=== PATIENT | female | born 1985 | race Caucasian/White ===

== ENCOUNTER 2020-03-28 19:04 | Emergency (ER) | payer OTHER, SELFPAY ==
--- NOTE | ~2020-03-28 | XR_ITS ---
EXAMINATION: XR foot RT min 3V DATE: 03/28/2020 19:34 INDICATION: Right foot pain and swelling. TECHNIQUE: 4 views of right foot were obtained. COMPARISON: None. FINDINGS: Bone alignment is normal. No fracture. Joint spaces are well maintained. IMPRESSION: 1. Normal right foot. Reviewed, dictated and finalized at location A. IMPRESSION: 1. Normal right foot.
[2020-03-28 19:07] VITALS: BP 120/91; PULSE 104; RESP 20; TEMP 36.8; O2SAT 100
[2020-03-28] MEDS: ACETAMINOPHEN 500 MG TABLET 1000 MG PO (19:59)
--- NOTE | 2020-03-28 20:34 | ED.LOWEXIN ---
HPI - Extremity Injury (Lower) General Chief Complaint: Extremity Injury, Lower Stated Complaint: rt foot injury after fall Time Seen by Provider: 03/28/20 19:11 Source: patient Mode of arrival: wheelchair Limitations: no limitations History of Present Illness HPI Narrative: This is a 34 year old female that presents to the ER for right foot pain after an injury today. Reports she tripped walking and twisted her right foot. Reports since she has had swelling and pain to the right lateral foot. Reports pain is worse with weight bearing and relieved with rest. Reports she is 23 weeks . Reports she thinks her baby has been moving less today. Denies hitting her head, loss of consciousness, other injuries, or numbness. Related Data Allergies Allergy/AdvReac Type Severity Reaction Status Date / Time No Known Allergies Allergy Unknown Verified 01/20/07 18:50 Review of Systems Review of Systems: Narrative: CONSTITUTIONAL: Denies fever MUSCULOSKELETAL: Reports joint pain, and myalgia. NEUROLOGIC: Denies numbness All systems reviewed & are unremarkable except as noted in HPI and below PMFSH Family History Family History (Updated 05/14/16 @ 23:21 by DOCTOR UNKNOWN) Mother Family history of diabetes mellitus in first degree relative Grandparent Family history of malignant neoplasm of male breast Sibling Depression Patient's sister is in good health Father Patient's father is in good health Other Diabetes mellitus Family history of multiple sclerosis Social History Social History Smoking status: Former smoker Second hand tobacco smoke exposure: Yes Smoking end date: 10/17/15 Alcohol intake: current Exam Narrative: Exam Narrative: GENERAL: Well-appearing, well-nourished, and in no acute distress. HEAD: Normocephalic, atraumatic. EYES: EOMI. CHEST: Clear to auscultation. No respiratory distress. No wheezes rales or rhonchi HEART: Regular rate and rhythm. No murmur heard. Normal peripheral pulses. EXTREMITIES: Normal range of motion. Mild swelling and bruising to the right lateral foot dorsal surface over the metatarsal bones SKIN: Warm, dry, no rash. NEURO: No focal deficits. Alert and oriented x3. PSYCH: Normal mood and affect Course Vital Signs Vital signs: Vital Signs Temperature 98.2 F 03/28/20 19:07 Pulse Rate 104 H 03/28/20 19:07 Respiratory Rate 20 03/28/20 19:07 Blood Pressure 120/91 H 03/28/20 19:07 Pulse Oximetry 100 03/28/20 19:07 Temperature 98.2 F 03/28/20 19:07 Pulse Rate 104 H 03/28/20 19:07 Respiratory Rate 20 03/28/20 19:07 Blood Pressure 120/91 H 03/28/20 19:07 Pulse Oximetry 100 03/28/20 19:07 Procedures Other Procedure Procedure 1: Other Procedure: Bedside ultrasound performed by myself showed good movement and cardiac motion MDM - Extremity Injury (Lower) MDM Narrative Medical decision making narrative: Patient presents to the emergency department for right foot pain after an injury today. Right foot x-rays without acute. Patient given an Donte wrap and crutches. Instructed to rest, ice and take Tylenol as needed for pain. Patient also reported that she thought the baby was moving less today. I performed a bedside ultrasound. Fetus is active and has good cardiac motion. Patient is to follow-up with her primary care doctor and OB. Patient given warnings to return to the ER Imaging Data Radiologist's impression: ITS Impressions Foot X-Ray 03/28/20 19:39 IMPRESSION: 1. Normal right foot. Critical Care Time Critical Care Time Critical Care Time: No Discharge Plan Discharge Clinical Impression: Acute pain of right foot Patient Disposition: Home, Self-Care Condition: Stable Instructions: Foot Sprain (ED) Additional Instructions: Return to the emergency department if you experience fever, redness and swelling of your foot, or any other symptoms that are concerning to you Rest. I
== END 2020-03-28 21:15 | disposition home or self-care (01) ==
PROVIDERS: Emergency Provider Emergency Medicine
DX: M79.671 Pain in right foot (principal); Z87.891 Personal history of nicotine dependence
CPT/HCPCS: 73630; 99283; A9270

== ENCOUNTER 2020-06-13 12:11 | Observation (INO) | payer OTHER, SELFPAY ==
--- NOTE | 2020-06-13 12:11 | OBADM ---
This patient, Benita Garg, admitted to the OB room OB Post 112 for observation. Patient/family oriented to hospital policies and general routines including ID bracelet, bed and alarms, visiting hours, pain management, procedures, bathroom and other care routines, personal items, smoking policy, room service/diet, and visiting hours. Patient/Family are encouraged to report perceived risks to care and to ask questions if they do not understand what they are told or what they should do.
[2020-06-13 12:30] VITALS: BMI 31.8
[2020-06-13 12:45] VITALS: BP 103/75; PULSE 93
[2020-06-13 12:50] VITALS: TEMP 36.5
[2020-06-13 13:14] LABS: Add Urine Microscopic? YES; Appearance Urine Clear (Clear); Bacteria Urine Trace /hpf; Bilirubin Urine Negative (Negative); Blood Urine 1+ (Negative); Color Urine Yellow (Yellow); Glucose Urine UA Negative (Negative); Ketones Urine Negative (Negative); Leukocyte Esterase Ur Trace LEU/UL (NEGATIVE); Nitrate Urine Negative (Negative); Protein Urine Negative (Negative); RBC Urine 0-2 /hpf (0-2); Specific Grav Ur 1.009 (1.001-1.035); Squamous Epithelial Cell Urine Rare /hpf (Few); Urobilinogen Urine Negative mg/dL (<2.0); WBC Urine 0-3 /hpf (0-3)
--- NOTE | 2020-06-18 18:00 | PM.OBTRLD ---
OB - Triage/Final Diagnosis Visit Information Reason for evaluation: threatened labor Evaluation Baseline heart rate: 144 Variability: Moderate (11-25) monitor accelerations: Present monitor decelerations: None Cervical dilation (cm): 2 Cervical effacement (%): 50 station: -2 Laboratory results: Laboratory Tests 06/13/20 13:00 Urine Color Yellow Urine Appearance Clear Urine pH 7.0 Ur Specific [place] 1.009 Urine Protein Negative Urine Glucose (UA) Negative Urine Ketones Negative Ur Blood (Man) 1+ H Urine Nitrate Negative Urine Bilirubin Negative Urine Urobilinogen Negative Ur Leukocyte Esterase Trace H Urine RBC 0-2 Urine WBC 0-3 Ur Squamous Epith Cells Rare Urine Bacteria Trace Final Diagnosis (1) False labor: Code(s): O47.9 - False labor, unspecified Status: Acute
== END 2020-06-13 15:10 | disposition home or self-care (01) ==
PROVIDERS: Admitting Provider Obstetrics & Gynecology; Visit Provider Obstetrics & Gynecology
DX: O47.9 False labor, unspecified (principal); Z3A.00 Weeks of gestation of pregnancy not specified
CPT/HCPCS: 81001; 87086; 87088; G0378; G0379

== ENCOUNTER 2020-07-03 09:33 | Outpatient (RCR) | payer OTHER, SELFPAY ==
--- NOTE | ~2020-07-03 | US_ITS ---
EXAMINATION: US OB BPP wo non-stress EXAM DATE: 07/03/2020 11:08 INDICATION: Late care. Biophysical profile. 3rd trimester. TECHNIQUE: Pelvic obstetrical transabdominal sonogram was performed by a technologist. There are mu ltiple grayscale and Doppler images available for interpretation. There are no earlier studies of th is gestation for comparison. FINDINGS: There is a single fetus identified in vertex presentation with a heart rate of 143 beats pe r minute. The placenta is located in the anterior position. There is no sonographic evidence of retr oplacental hemorrhage identified. BIOPHYSICAL PROFILE (performed by the technologist) breathing (30 sec sustained breathing in 30 minutes): 2 out of 2 movement (3 gross body movements in 30 minutes): 2 out of 2 tone (one episode of zkxgmhm-tuyqppxhz-btwpgsn limb movement): 2 out of 2 Amniotic fluid pocket (2 cm): 2 out of 2 Total score: 8 out of 8 IMPRESSION: 1. Single fetus with heart rate of 143 bpm. 2. Normal biophysical profile score of 8 out of 8. Reviewed, dictated and finalized at location A.
== END 2020-07-17 09:58 | disposition home or self-care (01) ==
LOC: ANHOBOP 09:33
PROVIDERS: Visit Provider Obstetrics & Gynecology
DX: O09.33 Supervision of pregnancy with insufficient antenatal care, third trimester (principal); Z3A.37 37 weeks gestation of pregnancy
CPT/HCPCS: 59025; 76819

== ENCOUNTER 2020-07-16 05:35 | Inpatient (IN) | payer OTHER, SELFPAY ==
[2020-07-16] VITALS (134 sets, daily range): BP systolic 82–127; BP diastolic 50–91; PULSE 56–154; RESP 16; TEMP 36.1–36.7; O2SAT 91–100; BMI 32.7
--- NOTE | 2020-07-16 05:35 | LDADM ---
This patient, Benita Garg, was admitted to Labor/Delivery/Recovery 103 on 07/16/20 at 05:35. Plans for labor, pain management and were discussed with patient. Patient/family oriented to hospital policies and general routines including ID bracelet, bed and alarms, visiting hours, pain management, procedures, bathroom and other care routines, personal items, smoking policy, room service/diet and guest tray routines, security routines, and visiting hours. Patient/Family are encouraged to report perceived risks to care and to ask questions if they do not understand what they are told or what they should do. See OBIX for further documentation.
[2020-07-16 06:58] LABS: Basophils Percent Auto 0.4 % (0.2-1.2); Eosinophils Absolute Auto 0.1 K/mm3 (0-0.3); Eosinophils Percent Auto 0.8 % (0-4.4); Hematocrit 32.6 % (37.0-47.0); Hemoglobin 11.3 g/dL (12.0-15.0); Immature Granulocyte Absolute 0.06 K/mm3 (0.00-0.031); Immature Granulocyte Percent A 0.6 % (0-0.5); Lymphocytes Absolute Auto 1.81 K/mm3 (0.9-3.2); Lymphocytes Percent Auto 19.1 % (18.3-44.2); Mean Corpuscular HGB Conc 34.7 g/dl (32-36); Mean Corpuscular Hemoglobin 31.4 pg (26-34); Mean Corpuscular Volume 90.6 fl (80-100); Mean Platelet Volume 11.9 fl (7.4-10.4); Monocytes Absolute Auto 0.5 K/mm3 (0.1-0.6); Monocytes Percent Auto 5.5 % (2.6-8.5); Neutrophils Percent Auto 73.6 % (45.5-73.1); Platelet Count Result 131 k/mm3 (150-375); Red Cell Distribution Width 13.6 % (11.5-14.5); White Blood Count 9.5 K/mm3 (4.5-10.0)
[2020-07-16] MEDS: OXYTOCIN 30 UNITS/NS 500 ML 30 UNITS/500 ML BAG IV CONT (07:01)
[2020-07-16] MEDS: LACTATED RINGERS 1,000 ML 125 ML IV CONT ×3 (07:02→13:14)
[2020-07-16 07:35] LABS: Amphetamine Screen Urine Negative (Negative); Barbiturate Screen Urine Negative (Negative); Benzodiazepines Screen Urine Negative (Negative); Cannabinoid Screen Urine Negative (Negative); Cocaine Screen Urine Negative (Negative); Methadone Screen Urine Negative (Negative); Opiate Screen Urine Negative (Negative); Phencyclidine Screen Urine Negative (Negative)
--- NOTE | 2020-07-16 08:52 | WPDANESEPP ---
Anes - Eval Pre Procedure Procedure: labor epidural Date/Time: 07/16/20 08:52 Surgeon: Danny Preop Diagnosis: pain during labor Pre Op Diagnosis: IOL Patient Data Age: 35 Gender: F Height: 5 ft 1 in Weight: 78.5 kg Last Vital Signs Temp 36.6 C 07/16/20 06:31 Pulse 71 07/16/20 08:52 BP 102/67 07/16/20 08:52 Pulse Ox 99 07/16/20 08:49 Allergies Allergy/AdvReac Type Severity Reaction Status Date / Time No Known Allergies Allergy Unknown Verified 07/16/20 07:24 Home Medications Medication Instructions Recorded Confirmed Type PNV cmb#95-ferrous fumarate-FA 1 tablet PO DAILY 06/23/20 07/16/20 History [] Laboratory Tests 07/16/20 07/16/20 07/16/20 06:45 06:45 06:45 WBC 9.5 K/mm3 K/mm3 (4.5-10.0) RBC 3.60 M/mm3 L M/mm3 (4.2-5.4) Hgb 11.3 g/dL L g/dL (12.0-15.0) Hct 32.6 % L % (37.0-47.0) MCV 90.6 fl fl (80-100) MCH 31.4 pg pg (26-34) MCHC 34.7 g/dl g/dl (32-36) RDW 13.6 % % (11.5-14.5) Plt Count 131 k/mm3 L k/mm3 (150-375) MPV 11.9 fl H fl (7.4-10.4) Immature Gran % (Auto) 0.6 % H % (0-0.5) Neut % (Auto) 73.6 % H % (45.5-73.1) Lymph % (Auto) 19.1 % % (18.3-44.2) [place] % (Auto) 5.5 % % (2.6-8.5) Eos % (Auto) 0.8 % % (0-4.4) Baso % (Auto) 0.4 % % (0.2-1.2) Lymph # (Auto) 1.81 K/mm3 K/mm3 (0.9-3.2) [place] # (Auto) 0.5 K/mm3 K/mm3 (0.1-0.6) Eos # (Auto) 0.1 K/mm3 K/mm3 (0-0.3) Baso # (Auto) 0.0 K/mm3 K/mm3 (0.0-0.1) Abs Immat Gran (auto) 0.06 K/mm3 H K/mm3 (0.00-0.031) Absolute Neuts (auto) 7.0 K/mm3 H K/mm3 (1.3-6.7) Absolute Nucleated RBC 0.0 K/mm3 K/mm3 (0.0-0.012) Nucleated RBC % 0.0 % % (0.0-0.2) Urine Opiates Screen Urine Methadone Screen Ur Barbiturates Screen Ur Phencyclidine Scrn Ur Amphetamine Screen U Benzodiazepines Scrn Urine Cocaine Screen U Cannabinoids Screen RPR Pending Blood Type B Positive Antibody Screen Negative 07/16/20 06:55 WBC RBC Hgb Hct MCV MCH MCHC RDW Plt Count MPV Immature Gran % (Auto) Neut % (Auto) Lymph % (Auto) [place] % (Auto) Eos % (Auto) Baso % (Auto) Lymph # (Auto) [place] # (Auto) Eos # (Auto) Baso # (Auto) Abs Immat Gran (auto) Absolute Neuts (auto) Absolute Nucleated RBC Nucleated RBC % Urine Opiates Screen Negative (Negative) Urine Methadone Screen Negative (Negative) Ur Barbiturates Screen Negative (Negative) Ur Phencyclidine Scrn Negative (Negative) Ur Amphetamine Screen Negative (Negative) U Benzodiazepines Scrn Negative (Negative) Urine Cocaine Screen Negative (Negative) U Cannabinoids Screen Negative (Negative) RPR Blood Type Antibody Screen : gestational age (KATRIN 07/23/2020) Patient hx anesthesia problems: none Family hx anesthesia problems: none [facility] Family History Family History Mother Family history of diabetes mellitus in first degree relative Grandparent Cancer Breast cancer Family history of multiple sclerosis Sibling Depression Patient's sister is in good health Father Congestive heart failure Other Family history of multiple sclerosis Social History Social History Smoking status: Former smoker Second hand tobacco smoke exposure: Yes Smoking end date: 10/17/15 Alcohol intake: current Substance use: never Spiritual care concerns: No
--- NOTE | 2020-07-16 11:44 | PM.IMHP ---
H&P: HPI History of Present Illness Date/Time: 07/16/20 11:44 Chief complaint: IOL Narrative: Benita Garg is a 35 year old female at 39w. c/b abnormal progesterone, subchorionic hematoma (resolved), and HPV. US 07/03 with vertex presentation and normal BPP. She reports nausea, back pain, and contractions over the past few days. + movement. Reassuring fundal height and FHT present at 145. Cervix 0/0/-4. Induction of labor with pitocin Review of Systems Review of Systems: All systems reviewed & are unremarkable except as noted in HPI and below Constitutional: Constitutional: Reports no additional constitutional complaints Eyes: Eyes: Reports no additional eye complaints ENT: Reports system reviewed and no additional complaints, except as documented Cardiovascular: Cardiovascular: Reports no additional cardiovascular complaints Respiratory: Respiratory: Reports no additional respiratory complaints Gastrointestinal: Gastrointestinal: Reports no additional gastrointestinal complaints Genitourinary: Genitourinary: Reports no additional female genitourinary complaints Musculoskeletal: Musculoskeletal: Reports no additional musculoskeletal complaints Integumentary/Breasts: Skin/Breast: Reports system reviewed and no additional complaints, except as docu Neurologic: Reports system reviewed and no additional complaints, except as documented Endocrine: Endocrine: Reports no additional endocrine complaints Hematologic/Lymphatic: Hematologic/Lymphatic: Reports no additional hematologic/lymphatic complaints Allergic/Immunologic: Allergic/Immunologic: Reports no additional allergic/immunologic complaints [facility] Past Medical History Medical History BV (bacterial vaginosis) HPV (human papilloma virus) infection UTI (urinary tract infection) Family History Family History Mother Family history of diabetes mellitus in first degree relative Grandparent Cancer Breast cancer Family history of multiple sclerosis Sibling Depression Patient's sister is in good health Father Congestive heart failure Other Family history of multiple sclerosis Social History Social History (Updated 07/16/20 @ 11:56 by Ganesh Delgado MD) Smoking status: Never smoker Second hand tobacco smoke exposure: Yes Alcohol intake: never Substance use: never Substance use type: does not use Living arrangements: with family Occupation/Education: unemployed 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; homemaker; Gender identity (if verbalized by the patient): Female Sexual Orientation (if Verbalized by the Patient): Straight or Heterosexual Spiritual care concerns: No Agree to blood products: Yes Meds Home Medications and Allergies Home Medications Medication Instructions Recorded Confirmed Type PNV cmb#95-ferrous fumarate-FA 1 tablet PO DAILY 06/23/20 07/16/20 History [] Allergies Allergy/AdvReac Type Severity Reaction Status Date / Time No Known Allergies Allergy Unknown Verified 07/16/20 07:24 Vital Signs Vital Signs - 24 hr 07/16/20 06:31 07/16/20 06:49 07/16/20 07:01 Temperature 98 F Pulse Rate 78 73 Blood Pressure 114/80 109/71 Pulse Oximetry 07/16/20 07:16 07/16/20 07:31 07/16/20 07:46 Temperature Pulse Rate 73 67 72 Blood Pressure 106/73 94/61 L 106/70 Pulse Oximetry 07/16/20 08:01 07/16/20 08:16 07/16/20 08:24 Temperature Pulse Rate 68 63 Blood Pressure 110/76 108/77 Pulse Oximetry 92 07/16/20 08:28 07/16/20 08:29 07/16/20 08:31 Temperature Pulse Rate 81 81 Blood Pressure 121/91 H 125/83 Pulse Oximetry 100 07/16/20 08:34 07/16/20 08:37 07/16/20 08:39 Temperature Pulse Rate 80 Blood Pressure 127/89 Pulse Oximetry 100 100 07/16/20 08:42 07/16/20 08:43
--- NOTE | 2020-07-16 12:01 | WPDHPUPDATE1 ---
History and Physical Update Update Date/Time: 07/16/20 12:01 History and Physical has been reviewed, including an updated exam of the patient. There are NO changes in the patient's condition. Risks, benefits, and alternatives have been discussed and questions answered. Patient agrees to proceed with procedure. Routine care at 39w. c/b abnormal progesterone, subchorionic hematoma (resolved), and HPV. US 07/03 with vertex presentation and normal BPP. She reports nausea, back pain, and contractions over the past few days. + movement. Reassuring fundal height and FHT present at 145. Cervix 0/0/-4. Induction scheduled for today.
--- NOTE | 2020-07-16 12:02 | WPDOBADMIT ---
Obstetrics - Admit Note Admission Note: record reviewed. No pertinent additions to the history and/or any subsequent changes in the physical findings that are not consistent with the expected course of the were found. Additions to the history and/or subsequent changes in the physical findings follow. None. Routine care at 39w. c/b abnormal progesterone, subchorionic hematoma (resolved), and HPV. US 07/03 with vertex presentation and normal BPP. She reports nausea, back pain, and contractions over the past few days. + movement. Reassuring fundal height and FHT present at 145. Cervix 0/0/-4. Induction scheduled for today.
--- NOTE | 2020-07-16 13:11 | PM.OBPNLAB ---
Pain Control Date/time seen: 07/16/20 13:11 Pain control: tolerating well and epidural Pelvic Exam Dilation (cm): 6 Effacement (%): 75 station: -2 Amniotic membrane status: Ruptured Comments: Bloody show Contractions Monitor mode: Internal (IUPC placed ) Contraction frequency: 3 Contraction duration: 45 Contraction pattern: Regular Contraction phase: Resting Contraction intensity: Moderate Status status: Category l Assessment and Plan Pitocin rate (mU/min): 8 Assessment: active labor, induction ongoing and other (SROM) Plan: continuous present management
--- NOTE | 2020-07-16 14:35 | P.PCNOB_ITS ---
OB - Delivery Note Procedure Delivery date: 07/16/20 Procedure: Procedures Operation Date: 07/18/20 10:30 Normal Spontaneous vertex vaginal delivery a viable male infant and placenta Repair of first-degree perineal laceration Intrapartal events: None Induction method: per pitocin protocol Delivery augmentation: pitocin Delivery monitor: external FHT and internal uterine Route of delivery: Episiotomy description: None Laceration description: Perineal - 1st Degree Delivery repair: vicryl Specimen: Yes Estimated blood loss (mL): 125 Anesthesia type: Epidural Disposition: floor Narrative: normal spontaneous vertex vaginal delivery a viable male infant over an intact perineum nuchal cord x1 reduced on the perineum anterior shoulder delivered without difficulty infant delivered and placed on the maternal abdomen where the cord was clamped and cut and the had normal spontaneous respirations spontaneous cry taken to the nursery in stable condition placenta then delivered intact three-vessel cord the uterus contracted well with Pitocin given intravenously first-degree perineal laceration was repaired with 2 0 Vicryl suture in the usual fashion cervix and rectum were checked no sponges left in the vagina and no fistula sphincter is intact patient is in room 103 no antibiotics no DVT protection needed patient ambulatory patient desires tubal sterilization will be done on TuesdayJuly 18 10:30 a.m. [place] Baby Date of : 07/16/20 Time of : 14:21 Weeks of gestation at delivery: 39 Infant gender: Male Weight (pounds): 7 Weight (ounces): 14 presentation: vertex position: Left Occiput Anterior Placenta delivery description: Spontaneous and Normal Configuration cord vessel description: 3 Vessels, Nuchal Cord and Reduced score one minute: 9 score five minutes: 9
[2020-07-16] MEDS: OXYTOCIN 30 UNITS/NS 500 ML 30 UNITS/500 ML BAG 125 UNITS IV CONT (14:59)
[2020-07-16] MEDS: IBUPROFEN 600 MG TABLET PO ×2 (15:35→21:42)
[2020-07-16] MEDS: WITCH HAZEL 40 PADS 1 PAD TOPICAL (15:35)
[2020-07-16] MEDS: BENZOCAINE 20% AER SPR (*SP) 56 GM CAN 1 SPRAY TOPICAL (15:35)
--- NOTE | 2020-07-16 17:33 | OBPPTRN ---
@ [id number] Patient transferred to post room #281 via W/C. Support person present. Oriented to unit, room, information board, rooming in, admission packet and security measures. Patient verbalizes understanding.
[2020-07-16] MEDS: ACETAMINOPHEN 325 MG TABLET 650 MG PO (19:06)
[2020-07-17] MEDS: IBUPROFEN 600 MG TABLET PO ×3 (03:30→21:35)
[2020-07-17] MEDS: HYDROcodone/acetaminophen (*CRX) 10-325 MG TABLET 1 TAB PO (04:37)
[2020-07-17 05:30] LABS: Hematocrit 32.3 % (37.0-47.0); Hemoglobin 10.8 g/dL (12.0-15.0)
[2020-07-17 06:33] LABS: Rapid Plasma Reagin Non-Reactive (NonReactive)
[2020-07-17 08:10] VITALS: BP 116/80; PULSE 68; RESP 16; TEMP 36.6; O2SAT 100
[2020-07-17] MEDS: HYDROcodone/acetaminophen (*CRX) 5-325 MG TABLET 1 TAB PO ×3 (10:16→21:35)
--- NOTE | 2020-07-17 14:02 | PM.OBPNVD ---
OB - PN: Subj Subjective Date/time seen: 07/17/20 14:02 Patient comments: no complaints, pain well controlled, tolerating diet and flatus present [place] baby status: doing well and bottle feeding well [place] feeding status: exclusively bottle feeding OB - PN: Obj Data Labs CBC & Chem 7: 07/17/20 04:39 Labs: Laboratory Results - last 24 hr 07/16/20 07/17/20 06:45 04:39 Hgb 10.8 L Hct 32.3 L RPR Non-reactive OB - PN A/P Assessment and Plan (1) Term delivered: Code(s): O80 - Encounter for full-term uncomplicated delivery Status: Acute (2) Encounter for female sterilization procedure: Code(s): Z30.2 - Encounter for sterilization Status: Acute Assessment and Plan: pptl 07/18/20 10:30 informed consent obtained Time Spent With Patient Time: Total time spent is greater than 50% in coordination of care (as documented) at patient's floor/unit and/or counseling patient: Review of Systems Review of Systems: All systems reviewed & are unremarkable except as noted in HPI and below Constitutional: Constitutional: Reports no additional constitutional complaints Cardiovascular: Cardiovascular: Reports no additional cardiovascular complaints Respiratory: Respiratory: Reports no additional respiratory complaints Gastrointestinal: Gastrointestinal: Reports no additional gastrointestinal complaints Genitourinary: Genitourinary: Reports no additional female genitourinary complaints Integumentary/Breasts: Skin/Breast: Reports system reviewed and no additional complaints, except as docu Neurologic: Reports system reviewed and no additional complaints, except as documented Exam Const: General: comfortable and no acute distress Orientation/consciousness: patient oriented x3 Chest: Breast/axilla inspection: normal inspection of the breasts Breast/axilla palpation: normal palpation of the breasts Resp: Effort & Inspection: normal respiratory effort Auscultation: clear to auscultation bilaterally Cardio: Rate: regular rate GI: Auscultation: normal bowel sounds : General: Yes bladder normal to inspection and Yes no CVA tenderness Psych: Appearance: grossly normal Mental Status: mental status grossly normal Affect: normal affect Attitude: cooperative Judgement: Good judgement present (Psych)
--- NOTE | 2020-07-17 14:05 | WPDHPUPDATE1 ---
History and Physical Update Update Date/Time: 07/18/20 09:05 History and Physical has been reviewed, including an updated exam of the patient. There are NO changes in the patient's condition. Risks, benefits, and alternatives have been discussed and questions answered. Patient agrees to proceed with procedure. Desires Bilateral Tubal sterilization Bilateral salpingectomy PPTL 10:30 07/18/20 informed consent obtained [facility] consent in chart
[2020-07-17 20:15] VITALS: BP 118/77; PULSE 71; RESP 16; TEMP 36.6
[2020-07-18] VITALS (11 sets, daily range): BP systolic 109–127; BP diastolic 74–87; PULSE 72–88; RESP 14–18; TEMP 36.3–37.5; O2SAT 94–100
--- NOTE | 2020-07-18 09:43 | WPDANESEPPF ---
Anes - Initial Pre Proc Eval Procedure: Operation Date: 07/18/20 10:30 Proposed Procedures p Post- Tubal Ligation - Ganesh Delgado MD Date/Time: 07/18/20 09:43 Surgeon: Ganesh Delgado MD Pre Op Diagnosis: IOL Patient Data Age: 35 Gender: F Height: 5 ft 1 in Weight: 78.5 kg Last Vital Signs Temp 99.5 F 07/18/20 09:33 Pulse 77 07/18/20 09:33 Resp 18 07/18/20 09:33 BP 114/74 07/18/20 09:33 Pulse Ox 99 07/18/20 09:33 Allergies Allergy/AdvReac Type Severity Reaction Status Date / Time No Known Allergies Allergy Unknown Verified 07/16/20 07:24 Home Medications Medication Instructions Recorded Confirmed Type PNV cmb#95-ferrous fumarate-FA 1 tablet PO DAILY 06/23/20 07/16/20 History [] : gestational age (KATRIN 07/23/2020) Patient hx anesthesia problems: none Family hx anesthesia problems: none PMFSH Past Medical History Medical History BV (bacterial vaginosis) HPV (human papilloma virus) infection UTI (urinary tract infection) Family History Family History Mother Family history of diabetes mellitus in first degree relative Grandparent Cancer Breast cancer Family history of multiple sclerosis Sibling Depression Patient's sister is in good health Father Congestive heart failure Other Family history of multiple sclerosis Social History Social History (Updated 07/16/20 @ 11:56 by Ganesh Delgado MD) Smoking status: Never smoker Second hand tobacco smoke exposure: Yes Alcohol intake: never Substance use: never Substance use type: does not use Living arrangements: with family Occupation/Education: unemployed 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; homemaker; Gender identity (if verbalized by the patient): Female Sexual Orientation (if Verbalized by the Patient): Straight or Heterosexual Spiritual care concerns: No Agree to blood products: Yes Anes - Eval Final PreProcedure Day of Procedure 07/18/20 09:43 Patient weight: normal Heart: regular rate and rhythm Lungs: clear to auscultation Airway: Mallampati scale class II Neurological: alert and oriented Last oral intake: >/= 8 hours ASA classification: II Anesthetic plan: proceed Anesthesia type and monitoring: general ETT and standard monitoring Informed Consent: The patient's anesthetic plan and its attendant risks and benefits were discussed with the patient/family/POA. Questions were solicited and answers provided to the satisfaction of the patient/family/POA.
[2020-07-18] MEDS: LACTATED RINGERS 1,000 ML 30 ML IV CONT ×2 (09:55→12:21)
[2020-07-18] MEDS: ONDANSETRON INJ 4 MG/2 ML VIAL IV PUSH (09:55)
--- NOTE | 2020-07-18 10:35 | PM.OBDSVD ---
DS: Admitting Diagnosis Admitting Diagnosis Admitting Diagnosis: IOL Term Thrombocytopenia Desires bilateral tubal sterilization History of HPV DS: Discharge Diagnosis Discharge Diagnosis (1) Term delivered: Code(s): O80 - Encounter for full-term uncomplicated delivery Status: Acute (2) Encounter for female sterilization procedure: Code(s): Z30.2 - Encounter for sterilization Status: Acute (3) Thrombocytopenia: Code(s): D69.6 - Thrombocytopenia, unspecified Status: Acute (4) Encounter for elective induction of labor: Code(s): Z34.90 - Encounter for supervision of normal , unspecified, unspecified trimester Status: Acute (5) Term : Code(s): Z34.90 - Encounter for supervision of normal , unspecified, unspecified trimester Status: Acute (6) HPV (human papilloma virus) infection: Code(s): B97.7 - Papillomavirus as the cause of diseases classified elsewhere Status: Acute OB - DS: Summary Hospital Course Time spent discussing smoking cessation with patient: 3 to 10 minutes OB Procedures : Ultrasound OB Procedures Intrapartum: Spontaneous Vag Delivery OB Procedures: : P.P. tubal ligation Peripartum Data Delivery Method: Natural Vaginal Laceration description: Perineal - 1st Degree Procedures: Procedures Operation Date: 07/18/20 10:30 bilateral tubal sterilization with bilateral salpingectomy under general anesthesia complications: none [place] 1: Gender: Male Disposition of : home Status at Discharge Functional status at discharge: independent ambulation Overall status at discharge: patient is back to baseline Time Spent with Patient Time attestation: Total time spent providing and/or coordinating discharge services: Time spent: Less than 30 minutes Exam Const: General: comfortable and no acute distress Orientation/consciousness: patient oriented x3 Limitations: no limitations Chest: Breast/axilla inspection: normal inspection of the breasts Breast/axilla palpation: normal palpation of the breasts Resp: Effort & Inspection: normal respiratory effort Auscultation: clear to auscultation bilaterally Cardio: Rate: regular rate GI: GI Palp: Yes Soft to palpation Percussion: Yes normal to percussion Auscultation: normal bowel sounds : General: Yes bladder normal to inspection Psych: Appearance: grossly normal Affect: normal affect Attitude: cooperative Thought content: Yes Normal thought content present Judgement: Good judgement present (Psych) DS: Data Data Completed and Pending Pending studies at discharge: Pending at discharge 07/16/20 14:30 Surgical [PTH] Routine Discharge Plan Discharge Attending physician on discharge: Ganesh Delgado Consulting providers: Yannick Mazariegos Discharging Clinician: Ganesh Delgado Anticipated Discharge Date/Time: 07/18/20 10:31 Patient Disposition: Home, Self-Care Activity: may shower, no straining and may drive after 2 weeks Diet: as tolerated and regular Wound Care Instructions: follow printed instructions Patient Instructions: Antibiotic Form Stand Alone Forms: General Discharge Information Follow-up/Referrals: Ganesh Delgado MD [Physician] - Discharge Medications: New hydrocodone-acetaminophen 5-325 mg Tablet 1 tab PO Q6H PRN (Reason: Moderate Pain (4-6)) Qty: 12 RF: 0 ibuprofen 600 mg Tablet 600 mg PO Q6H PRN (Reason: Cramping) Qty: 90 RF: 0 Continued PNV [id number]-ferrous fumarate-FA [] 28 mg iron- 800 mcg Tablet 1 tablet PO DAILY Qty: 100 RF: 3 Date of admission: 07/16/20 05:35 Primary Care Provider: PHYSICIAN,TERRAZZO LAYER HELPER Admitting Provider: Ganesh Delgado Attending physician on admission: Ganesh Delgado Condition: Stable
[2020-07-18] MEDS: ceFAZolin SODIUM 1 GM VIAL 2 GM IV PUSH (11:03)
--- NOTE | 2020-07-18 11:49 | PM.PROC ---
Procedure Note - Detailed Date of procedure: 07/18/20 Pre-op diagnosis: Multiparity desires bilateral tubal sterilization Post-op diagnosis: same Procedure performed: bilateral tubal sterilization with bilateral salpingectomy Description of procedure: Informed consent obtained by the PA consent in chart patient taken to the operating room given IV general anesthesia was then oral tracheal E intubated without difficulty. The abdomen was prepped and draped in the usual sterile fashion after Park catheter was in place and a time-out was performed. Infiltration of 0.25% Marcaine plain in the umbilicus bilaterally and placement of Allis clamps. A transverse incision was made across the umbilicus and the abdomen was opened in layers with electrocautery hemostasis obtained by cautery. The fascia was entered with electrocautery and a sponge was placed to place the omentum and bowel in the upper abdomen appendiceal retractors were then used to identify the fallopian tubes. In a bilateral sequential fashion, the fallopian tubes were traced out to the fimbriated aspect and the mesial salpinx were identified an endo coagulated to allow placement of clamps across the proximal tube and the fimbria ovarian. The fallopian tubes were excised using electrocautery. And then 2 0 silk suture ties were placed around the proximal fallopian tubes and around the fimbria varicose doubly with excellent hemostasis resulting across the mesial salpinx using electrocautery hemostasis was excellent the procedure was then completed. The spine sponges were removed from the abdominal cavity the sponge needle and instrument counts were correct. The abdominal fascia was closed with 0 Vicryl suture in a running fashion the sub cutaneous tissues were reapproximated with 0 Vicryl suture in a running fashion skin was then closed with 4 O Monocryl in a subcuticular fashion and Dermabond placed to the skin a sterile dressing was applied the patient was extubated in the operating room taken to the recovery room stable condition. Sponge needle instrument counts correct Blood loss 5 cc VTE prevention SCDs Antibiotic prophylaxis S 2 g Ancef Procedure performed OR room 5. Disposition patient taken to recovery room stable condition and then to floor will should be discharged this evening to home. Anesthesia: GETA Surgeon: Ganesh Delgado MD Network And Threat Support Specialist: Registered nurse first assistant manager Estimated blood loss (mL): 5 IV fluids (mL): 1,000 Urine output (mL): 150 Drains: No Packing: No Pathology: yes (Right and left fallopian tube) Complications: None Condition: stable Disposition: floor Findings: Normal uterus tubes and ovaries mesial salpinx normal no obvious arcuate vessels hemostasis excellent proximal end and fimbria or varicose Mesosalpinx hemostatic
[2020-07-18] MEDS: fentaNYL CITRATE INJ (*CRX) 100 MCG/2 ML VIAL 25 MCG IV PUSH ×7 (12:13→12:55)
--- NOTE | 2020-07-18 12:47 | SUR.PHASEI ---
[id number] sbar faxed floor notiifed
--- NOTE | 2020-07-18 13:08 | PC.NURSE ---
Pt returned from surgery via bed. Alert and oriented x3. Pt able to ambulate to bathroom without difficulty but with assistance.
[2020-07-18] MEDS: HYDROcodone/acetaminophen (*CRX) 10-325 MG TABLET 1 TAB (13:15)
[2020-07-18] MEDS: IBUPROFEN 600 MG TABLET (13:15)
--- NOTE | 2020-07-18 13:32 | PC.NURSE ---
Pt watched discharge mom and baby video.
[2020-07-19 09:18] VITALS: BP 132/84; PULSE 73; RESP 20; TEMP 36.7; O2SAT 100
== END 2020-07-18 15:23 | disposition home or self-care (01) | DRG 541 ==
LOC: ANHLDR 08:49 → ANHOB2 17:35
PROVIDERS: Admitting Provider Obstetrics & Gynecology; Visit Provider Obstetrics & Gynecology
PROC: 0UT70ZZ Resection of Bilateral Fallopian Tubes, Open Approach (ICD-10-PCS; CPT 58605; principal; 2020-07-18 10:30)
DX: O69.81X0 Labor and delivery complicated by cord around neck, without compression, not applicable or unspecified (principal); Z30.2 Encounter for sterilization; O70.0 First degree perineal laceration during delivery; Z3A.39 39 weeks gestation of pregnancy; Z37.0 Single live birth; O99.12 Other diseases of the blood and blood-forming organs and certain disorders involving the immune mechanism complicating childbirth; Z23 Encounter for immunization; D69.6 Thrombocytopenia, unspecified
CPT/HCPCS: 36415; 80307; 85014; 85018; 85025; 86592; 86850; 86900; 86901; 88302; 88307; 90471; 90653; A9270; G0008; J0330; J0690; J1100; J2250; J2370; J2405; J2590; J2704; J2795; J3010; J7120